=== PATIENT | male | born 1965 | race Caucasian/White ===

== ENCOUNTER 2021-02-27 20:08 | Emergency (ER) | payer OTHER ==
[~2021-02-27 20:08] MED LIST: ANUSOL HC SUPP1 SUPP PR; AUGMENTIN 875-1 EACH PO; BENTYL 20MG TAB20 MG PO; CHRONULAC20 GM/30 M PO; CIPRO500 MG PO; FLAGYL500 MG PO; FUROSEMIDE40 MG PO; LACTULOSE20 GM/30 M PO; MAGOX 400400 MG PO; MIDAMOR TAB 5 MG5 MG PO; NITROGLYCE20 MG/1 GM TOP; POTASSIUM CHLO20 ME2 PO; SYNTHROID200 MCG PO; XIFAXAN 550 MG550 MG PO; ZOFRAN ODT 4 MG4 MG PO
[2021-02-27 21:58] LABS: HEMOGLOBIN 11.1 gm/dl (14.0-17.5); RED BLOOD COUNT 3.06 M/UL (4.20-5.50); WHITE BLOOD COUNT 4.2 K/UL (4.5-11.0)
[2021-02-27 22:11] LABS: BUN/CREATININE RATIO 15 (0-10)
[2021-02-27] MEDS ORDERED: KLOR-CON M1010 MEQ PO (22:46)
== END 2021-02-27 22:57 | disposition home or self-care (01) ==
LOC: ER1 20:08
PROVIDERS: Internal Medicine
DX: K74.60 Unspecified cirrhosis of liver (principal); R18.8 Other ascites; E87.6 Hypokalemia; M10.9 Gout, unspecified
CPT/HCPCS: 80053; 85025; 96374; 99284; P9047

== ENCOUNTER 2021-03-19 06:44 | Emergency (ER) | payer OTHER ==
[~2021-03-19 06:44] MED LIST changes: +KLOR-CON M1010 MEQ PO; -SYNTHROID200 MCG PO
[2021-03-19 07:49] LABS: HEMOGLOBIN 12.2 gm/dl (14.0-17.5); RED BLOOD COUNT 3.39 M/UL (4.20-5.50)
== END 2021-03-19 10:45 | disposition home or self-care (01) ==
LOC: ER1 06:44
PROVIDERS: Physician Assistant
DX: R42 Dizziness and giddiness (principal); R53.1 Weakness; R41.3 Other amnesia; Z90.49 Acquired absence of other specified parts of digestive tract
CPT/HCPCS: 80053; 81001; 82140; 85025; 85610; 96374; 99284; J2405

== ENCOUNTER 2021-03-20 21:21 | Emergency (ER) | payer OTHER ==
[2021-03-20 22:35] LABS: HEMOGLOBIN 12.3 gm/dl (14.0-17.5); RED BLOOD COUNT 3.33 M/UL (4.20-5.50)
== END 2021-03-21 | disposition home or self-care (01) ==
LOC: ER1 21:21
PROVIDERS: Family Medicine
DX: K74.60 Unspecified cirrhosis of liver (principal); F80.81 Childhood onset fluency disorder
CPT/HCPCS: 71045; 80053; 81001; 82140; 83690; 85025; 85610; 99285

== ENCOUNTER 2021-03-23 07:44 | Emergency (ER) | payer OTHER ==
[2021-03-23 08:19] LABS: HEMOGLOBIN 13.7 gm/dl (14.0-17.5); WHITE BLOOD COUNT 6.3 K/UL (4.5-11.0)
[2021-03-23 08:23] LABS: RED BLOOD COUNT 3.67 M/UL (4.20-5.50)
[2021-03-23] MEDS ORDERED: PHENERGAN 25 MG25 M1 PO (12:18)
== END 2021-03-23 12:30 | disposition home or self-care (01) ==
LOC: ER1 07:44
PROVIDERS: Physician Assistant
DX: K74.60 Unspecified cirrhosis of liver (principal); M10.9 Gout, unspecified
CPT/HCPCS: 80053; 82140; 83690; 85025; 85610; 96374; 99284; J2550

== ENCOUNTER 2021-04-05 16:23 | Inpatient (IN) | payer OTHER ==
[~2021-04-05] VITALS: Ht 182.9 cm; Wt 120.0 kg
[~2021-04-05 16:23] MED LIST changes: +PHENERGAN 25 MG25 M1 PO
[2021-04-05 16:38] LABS: HEMOGLOBIN 12.1 gm/dl (14.0-17.5); RED BLOOD COUNT 3.23 M/UL (4.20-5.50); WHITE BLOOD COUNT 8.7 K/UL (4.5-11.0)
[2021-04-05 17:16] LABS: BUN/CREATININE RATIO 17 (0-10)
[2021-04-05] MEDS ORDERED: XIFAXAN550 MG PO (23:25)
[2021-04-05] MEDS ORDERED: K-DUR TAB 20 M20 MEQ PO (23:26)
[2021-04-05] MEDS ORDERED: MAGNESIUM OXID400 M2 PO (23:28)
[2021-04-05] MEDS ORDERED: ROBAXIN 750 MG750 MG PO (23:29)
[2021-04-05] MEDS ORDERED: URSODIOL500 MG PO (23:29)
[2021-04-05] MEDS ORDERED: MIRALAX17 GM PO (23:29)
[2021-04-05] MEDS ORDERED: SYNTHROID200 MCG PO (23:29)
[2021-04-06 02:40] LABS: RED BLOOD COUNT 3.24 M/UL (4.20-5.50); WHITE BLOOD COUNT 10.7 K/UL (4.5-11.0)
--- NOTE | 2021-04-06 05:32 | NUR ---
ROCEPHIN GIVEN, UNABLE TO DOCUMENT DUE TO PHARMACY HAVING DOCUMENTATION OPEN.
[2021-04-06] MEDS ORDERED: SV FLAXSEED OI1 EACH PO (09:14)
[2021-04-06] MEDS ORDERED: SYNTHROID175 MCG PO (15:00)
[2021-04-06] MEDS ORDERED: SPIRONOLACTONE100 MG PO (23:24)
[2021-04-06] MEDS ORDERED: LACTULOSE20 GM/30 M PO (23:24)
[2021-04-06] MEDS ORDERED: PEPCID20 MG PO (23:25)
[2021-04-06] MEDS ORDERED: ZOFRAN ODT 4 MG4 MG PO (23:25)
[2021-04-06] MEDS ORDERED: HYDROCHLOROTH12.5 M1 PO (23:26)
[2021-04-06] MEDS ORDERED: BUMETANIDE2 MG PO (23:26)
[2021-04-06] MEDS ORDERED: DRISDOL1250 MCG PO (23:28)
[2021-04-07 02:41] LABS: RED BLOOD COUNT 2.73 M/UL (4.20-5.50); WHITE BLOOD COUNT 8.8 K/UL (4.5-11.0)
--- NOTE | 2021-04-08 03:04 | NUR ---
AT BEGINNING OF PM SHIFT, 04-07-21, DR CADET DISCUSSED OPTIONS FOR TREATMENT OF PATIENT WITH NURSE. WHEN ASKED HOW PATIENT SHOULD RECEIVED MEDICATIONS SINCE PATIENT IS NPO AND HAS PULLED OUT NG TUBE, DR CADET GAVE INSTRUCTIONS TO SIT PATIENT UP IN BED AND OFFER THICKENED LIQUIDS TOLERATED; ALSO SUGGESTED THAT NURSE ATTEMPTS TO ADMINISTER MEDICATIONS PO IF PATIENT ABLE TO TOLERATE. DURING PO MEDICATION ADMINISTRATION, SAT PATIENT UP AT ALMOST 90 DEGREE ANGLE AND OFFERED THICKENED WATER, WHICH PATIENT WAS ABLE TO SWALLOW WITHOUT DIFFICULTY. MEDICATIONS ADMINISTERED WITHOUT INCIDENT USING SPOONFULLS OF APPLESAUCE, WHICH PATIENT TOLERATED WELL. PATIENT CONTINUES TO REMOVE LEADS AND BLOOD PRESSURE CUFF AND HAS TRIED MULTIPLE TIMES TO REMOVE IV, WHICH HAS BEEN SECURED. PATIENT HAS FILLED 1 RECTAL TUBE BAG THIS SHIFT FOLLOWING LACTULOSE ADMINISTRATION. AM LABS HAVE BEEN DRAWN. PATIENT CURRENTLY RESTING IN BED WITH EYES CLOSED AND RESPIRATIONS DEEP AND EVEN. NO SIGNS OR SYMPTOMS OF DISCOMFORT ARE NOTED. BED IS IN LOW/LOCK, CALL AQUINO IS BESIDE PATIENT. FLUIDS ARE RUNNING VIA YANA IV PER ORDERS.
[2021-04-08 03:25] LABS: HEMOGLOBIN 9.5 gm/dl (14.0-17.5); RED BLOOD COUNT 2.6 M/UL (4.20-5.50); WHITE BLOOD COUNT 6.7 K/UL (4.5-11.0)
[2021-04-08 03:51] LABS: BUN/CREATININE RATIO 35 (0-10)
[2021-04-08 18:24] LABS: HEMOGLOBIN 9.3 gm/dl (14.0-17.5)
[2021-04-09 02:54] LABS: HEMOGLOBIN 9.3 gm/dl (14.0-17.5); RED BLOOD COUNT 2.53 M/UL (4.20-5.50); WHITE BLOOD COUNT 5.8 K/UL (4.5-11.0)
[2021-04-09 03:23] LABS: BUN/CREATININE RATIO 22 (0-10)
== END 2021-04-09 16:04 | disposition home or self-care (01) | DRG 682 ==
LOC: ER1 16:23 → CDU 18:41 → ER1 18:41 → PROG CARE 20:13 → CDU 20:13 → PROG CARE 20:41
PROVIDERS: Family Medicine; Physician Assistant Medical; ADMIT Internal Medicine
DX: N17.9 Acute kidney failure, unspecified (principal); K72.00 Acute and subacute hepatic failure without coma; R65.11 Systemic inflammatory response syndrome (SIRS) of non-infectious origin with acute organ dysfunction; M62.82 Rhabdomyolysis; E87.1 Hypo-osmolality and hyponatremia; D69.6 Thrombocytopenia, unspecified; D64.9 Anemia, unspecified; Z20.822 Contact with and (suspected) exposure to COVID-19; G89.29 Other chronic pain; M54.9 Dorsalgia, unspecified; K74.60 Unspecified cirrhosis of liver; M10.9 Gout, unspecified; J44.9 Chronic obstructive pulmonary disease, unspecified; K80.20 Calculus of gallbladder without cholecystitis without obstruction; K75.81 Nonalcoholic steatohepatitis (NASH); E03.9 Hypothyroidism, unspecified; Z88.8 Allergy status to other drugs, medicaments and biological substances; Z82.49 Family history of ischemic heart disease and other diseases of the circulatory system; Z79.890 Hormone replacement therapy
CPT/HCPCS: 36415; 36600; 51702; 70450; 71045; 80053; 80307; 81001; 82140; 82270; 82550; 82553; 82607; 82803; 82977; 83735; 83874; 84439; 84443; 84484; 84550; 85014; 85018; 85025; 85027; 85610; 86140; 86850; 86900; 86901; 87040; 99285; J0696; J2060; J2543; J7030; U0002

== ENCOUNTER 2021-04-15 19:40 | Emergency (ER) | payer OTHER ==
[~2021-04-15 19:40] MED LIST changes: +BUMETANIDE2 MG PO; +DRISDOL1250 MCG PO; +HYDROCHLOROTH12.5 M1 PO; +K-DUR TAB 20 M20 MEQ PO; +MAGNESIUM OXID400 M2 PO; +MIRALAX17 GM PO; +PEPCID20 MG PO; +ROBAXIN 750 MG750 MG PO; +SPIRONOLACTONE100 MG PO; +SV FLAXSEED OI1 EACH PO; +SYNTHROID175 MCG PO; +SYNTHROID200 MCG PO; +URSODIOL500 MG PO; +XIFAXAN550 MG PO
== END 2021-04-15 20:40 | disposition home or self-care (01) ==
LOC: ER1 19:40
DX: K74.60 Unspecified cirrhosis of liver (principal); M79.89 Other specified soft tissue disorders; Z79.899 Other long term (current) drug therapy
CPT/HCPCS: 99284

== ENCOUNTER → 2021-07-03 | Outpatient (CLI) | payer OTHER ==
[2021-07-03 11:50] LABS: HEMOGLOBIN 10.2 gm/dl (14.0-17.5); RED BLOOD COUNT 2.85 M/UL (4.20-5.50); WHITE BLOOD COUNT 5.3 K/UL (4.5-11.0)
[2021-07-03 12:21] LABS: BUN/CREATININE RATIO 18 (0-10)
== END ==
LOC: LAB 11:09
PROVIDERS: Nurse Practitioner
DX: R53.83 Other fatigue (principal); R94.4 Abnormal results of kidney function studies; N18.9 Chronic kidney disease, unspecified; K75.81 Nonalcoholic steatohepatitis (NASH); Z79.899 Other long term (current) drug therapy
CPT/HCPCS: 36415; 80053; 85025

== ENCOUNTER 2021-07-23 19:48 | Emergency (ER) | payer OTHER | END 2021-07-23 21:15 | disposition home or self-care (01) | LOC: ER1 19:48 | DX: K74.60 Unspecified cirrhosis of liver (principal); R18.8 Other ascites | CPT/HCPCS: 93005; 99284 ==

== ENCOUNTER 2021-08-16 10:17 | Observation (INO) | payer OTHER ==
[~2021-08-16] VITALS: Ht 182.9 cm; Wt 126.1 kg
[2021-08-16 12:30] LABS: RED BLOOD COUNT 3.07 M/UL (4.20-5.50); WHITE BLOOD COUNT 3.5 K/UL (4.5-11.0)
[2021-08-16] MEDS ORDERED: XIFAXAN550 MG PO (16:52)
--- NOTE | 2021-08-16 23:50 | NUR ---
2229- PT PULLED HIS IV OUT AND PULLED HIS LEADS OFF HIS TELEMETRY. PT IS NON COMPLIANT WITH TELEMETRY AND PLACING A NEW IV. WOULD RATHER LEAVE THE IV OUT AND THE TELEMETRY OFF FOR NOW DUE TO PATIENT BEING SO RESTLESS AND AGGRAVATED WITH NOT BEING ABLE TO GO HOME. WILL CONTINUE TO MONITOR THE PATIENT.
[2021-08-17 07:25] LABS: HEMOGLOBIN 10.2 gm/dl (14.0-17.5); RED BLOOD COUNT 2.85 M/UL (4.20-5.50)
[2021-08-17 07:29] LABS: WHITE BLOOD COUNT 4.4 K/UL (4.5-11.0)
[2021-08-17 07:59] LABS: BUN/CREATININE RATIO 24 (0-10)
--- NOTE | 2021-08-17 12:42 | NUR ---
WHEN ATTEMPTING TO GIVE PATIENT HIS ENEMA AND NOON MEDS, HE IS MORE ALERT AND HE AND HIS INSIST THAT HE IS LEAVING AMA. I EDUCATED MUCH HE WOUKD ALLOW WITHOUT INTERRUPTING, DR JOHNSON AND ADJUNCT ART HISTORY INSTRUCTOR AWARE, IV D/C'D AND PT TOLERATED WELL. HIS SIGNED HIS AMA PAPERS HE VERBALIZED. HE IS AWAITING HIS TRANSPORTATION.
== END 2021-08-17 12:59 | disposition left against medical advice (07) ==
LOC: ER1 10:17 → MED SURG 4 15:50 → CDU 15:50 → MED SURG 4 15:50
PROVIDERS: Physician Assistant; Physician Assistant Medical; ADMIT Internal Medicine
DX: K72.00 Acute and subacute hepatic failure without coma (principal); K74.60 Unspecified cirrhosis of liver; K75.81 Nonalcoholic steatohepatitis (NASH); N17.9 Acute kidney failure, unspecified; D69.6 Thrombocytopenia, unspecified; E87.6 Hypokalemia; M10.9 Gout, unspecified; Z20.822 Contact with and (suspected) exposure to COVID-19; Z87.19 Personal history of other diseases of the digestive system; Z88.6 Allergy status to analgesic agent; Z88.8 Allergy status to other drugs, medicaments and biological substances; Z53.29 Procedure and treatment not carried out because of patient's decision for other reasons
CPT/HCPCS: 36415; 70450; 71045; 80048; 80053; 81001; 82140; 83605; 83690; 83735; 83880; 84484; 85025; 85027; 85610; 85730; 93005; 99285; G0378; J7030; U0002

== ENCOUNTER 2021-08-25 13:55 | Inpatient (IN) | payer OTHER ==
[~2021-08-25] VITALS: Ht 182.9 cm; Wt 124.8 kg
[2021-08-25 14:23] LABS: RED BLOOD COUNT 2.96 M/UL (4.20-5.50); WHITE BLOOD COUNT 9.9 K/UL (4.5-11.0)
[2021-08-26 03:43] LABS: HEMOGLOBIN 10.3 gm/dl (14.0-17.5); RED BLOOD COUNT 2.91 M/UL (4.20-5.50); WHITE BLOOD COUNT 9.5 K/UL (4.5-11.0)
[2021-08-26 08:13] LABS: HEMOGLOBIN 10.2 gm/dl (14.0-17.5); RED BLOOD COUNT 2.82 M/UL (4.20-5.50); WHITE BLOOD COUNT 9.2 K/UL (4.5-11.0)
--- NOTE | 2021-08-26 11:08 | NUR ---
AT 1030AM PATIENT GOT OUT OF BED, PULLED OFF HIS BRIEF. PATIENT HAD XL LOOSE BOWEL MOVEMENT, HE THEN SLIPPED AND FELL IN THE STOOL. NURSE ARRIVES IN ROOM PATIENT IS SITTING ON HIS BUTT HOLDING ON TO THE RAIL. NURSE CALLS FOR HELP, PATIENT IS CLEANED UP, BED IS CLEANED AND PATIENT PLACED BACK IN BED PER JEFFREY LIFT. PATIENT IS THOROUGHLY ASSESSED WITH NO INJURY NOTED, PATIENT WITH NO COMPLAINT OF PAIN OR DISCOMFORT. WILL CONTINUE TO MONITOR, PATIENT BED ALARM AND FALLS RISK LIGHT IN PLACE. PATIENT NOT ADMITTED FALLS RISK HE WAS LETHARGIC ON ADMISSION
--- NOTE | 2021-08-26 15:09 | NUR ---
PATIENT MOVED TO ROOM 6110 CLOSER TO THE NURSES STATION. BED ALARM ON, FALLS LIGHT ON, YELLOW SOCKS ON
--- NOTE | 2021-08-26 18:34 | NUR ---
PATIENT ELEVATED HEART RATE. MD VALLADARES CALLED. NEW ORDER FOR METOPROLOL. MEDICATION PULLED AND GIVEN TO PATIENT.
--- NOTE | 2021-08-26 18:52 | NUR ---
NOTIFIED DR VALLADARES OF PTS HR 170'S. ORDERS RECIEVED AND PLACED.
--- NOTE | 2021-08-26 19:09 | NUR ---
NOTIFIED DR VALLADARES OF PTS EKG RESULTS AND VITALS, NEW ORDERS OBTAINED AND PLACED. ALSO SENT COPY OF EKG TO DR. EUBANKS AND SHE IS AWARE OF PTS STATUS AND NEW CONSULTS.
[2021-08-26 20:20] LABS: HEMOGLOBIN 9.3 gm/dl (14.0-17.5); RED BLOOD COUNT 2.6 M/UL (4.20-5.50); WHITE BLOOD COUNT 10.3 K/UL (4.5-11.0)
--- NOTE | 2021-08-27 01:25 | NUR ---
NOTIFIED DR VARGAS OF PTS POTASSIUM LEVEL NO REPLACEMENT ORDERS. ORDERS RECIEVED AND PLACED.
[2021-08-27 04:31] LABS: HEMOGLOBIN 9.3 gm/dl (14.0-17.5); RED BLOOD COUNT 2.6 M/UL (4.20-5.50); WHITE BLOOD COUNT 9.5 K/UL (4.5-11.0)
--- NOTE | 2021-08-27 11:15 | NUR ---
08/28/[address] BRURIS NOTIFIED THAT PATIENTS HEART RATE IS STILL 120'S -130'S AFTER RECEIVEING DIGOXIN, PATIENTS BP 82/43 (52). ORDERS WERE RECEIVED TO GIVE THE PATIENT A BOLUS OF 250ML NORMAL SALINE
[2021-08-28 05:49] LABS: HEMOGLOBIN 8.8 gm/dl (14.0-17.5); RED BLOOD COUNT 2.51 M/UL (4.20-5.50)
[2021-08-28 05:54] LABS: WHITE BLOOD COUNT 14.6 K/UL (4.5-11.0)
--- NOTE | 2021-08-28 11:49 | NUR ---
PATIENT REQUESTED TO LEAVE AGAINST MEDICAL ADVICE. DR. JOHNSON CALLED AND NOTIFIED OF PATIENT REQUEST. PATIENT EDUCATED THAT HE IS ON MEDICATION TO MAINTAIN HIS BLOOD PRESSURE AND THAT IF HE LEAVES AGAINST MEDICAL ADVICE THAN HE IS AT RISK FOR HIS BLOOD PRESSURE DROPPING TOO LOW. HIS IS AT BEDSIDE AND HAS BEEN EDUCATED ABOUT THIS WELL. THEY ARE BOTH UNDERSTANDING AND STILL DEMAND AMA PAPERS WITH THE PATIENT STATING "I KNOW WHAT AMA IS, GIVE ME MY PAPERS AND GET THIS STUFF OFF OF ME". THE PATIENT HAS CONTINUED TO REFUSE TREATMENT. THE PATIENT IS ALERT AND ORIENTED TO PERSON, PLACE AND TIME. PATIENT SIGNED THE AMA PAPERS ALONG WITH HIS STATING THAT THEY UNDERSTAND THE POSSIBLE CONSEQUENCES OF LEAVING AND THAT THE HOSPITAL AND STAFF WILL NOT BE HELD RESPONSIBLE.
--- NOTE | 2021-08-28 12:10 | NUR ---
PATIENT IV REMOVED. VITALS TAKEN BEFORE LEAVING: B/P: 133/59 (74), OXYGEN SAT: 95% ON ROOM AIR, HR: 80. PATIENT TRANSPORTED OUT VIA WHEELCHAIR WITH HIS BELONGINGS AND HIS .
== END 2021-08-28 12:12 | disposition left against medical advice (07) | DRG 432 ==
LOC: ER1 13:55 → CDU 18:10 → CCU 18:10 → PROG CARE 22:53 → CCU 08-27 14:30
PROVIDERS: Family Medicine; Internal Medicine Nephrology; ADMIT Internal Medicine
PROC: B24BZZZ Ultrasonography of Heart with Aorta (ICD-10-PCS; principal; 2021-08-27)
DX: K74.60 Unspecified cirrhosis of liver (principal); K72.00 Acute and subacute hepatic failure without coma; Z20.822 Contact with and (suspected) exposure to COVID-19; E72.20 Disorder of urea cycle metabolism, unspecified; N17.9 Acute kidney failure, unspecified; E87.1 Hypo-osmolality and hyponatremia; R57.9 Shock, unspecified; K75.81 Nonalcoholic steatohepatitis (NASH); D69.6 Thrombocytopenia, unspecified; D63.8 Anemia in other chronic diseases classified elsewhere; K42.9 Umbilical hernia without obstruction or gangrene; M10.9 Gout, unspecified; E03.9 Hypothyroidism, unspecified; E88.09 Other disorders of plasma-protein metabolism, not elsewhere classified; E66.9 Obesity, unspecified; K80.20 Calculus of gallbladder without cholecystitis without obstruction; D63.1 Anemia in chronic kidney disease; N18.30 Chronic kidney disease, stage 3 unspecified; I48.0 Paroxysmal atrial fibrillation; I12.9 Hypertensive chronic kidney disease with stage 1 through stage 4 chronic kidney disease, or unspecified chronic kidney disease; Z82.49 Family history of ischemic heart disease and other diseases of the circulatory system; Z88.8 Allergy status to other drugs, medicaments and biological substances; Z88.6 Allergy status to analgesic agent; Z79.01 Long term (current) use of anticoagulants; Z68.37 Body mass index [BMI] 37.0-37.9, adult
CPT/HCPCS: ECHO; 36415; 51701; 70450; 80053; 81001; 82140; 82436; 82533; 82550; 82553; 82570; 83605; 83690; 83735; 83880; 83935; 84100; 84132; 84133; 84156; 84300; 84439; 84443; 84484; 85025; 85610; 87040; 93005; 93306; 99285; C9113; J0610; J1160; J2354; J2370; J3480; J7030; J7070; U0002